=== PATIENT | female | born 1985 | race Caucasian/White ===

== ENCOUNTER 2023-10-13 16:44 | Emergency (ER) | payer SELFPAY ==
[2023-10-13] VITALS (19 sets, daily range): BP systolic 93–136; BP diastolic 47–89
[~2023-10-13] VITALS: Ht 162.6 cm; Wt 63.6 kg
[2023-10-13] MEDS ORDERED: MULTIPLE VITAMIN 10 ML,THIAMINE HCL 100 MG in SODIUM CHLORIDE 0.9% 1,000 ML IV ONE (16:50)
[2023-10-13] MEDS ORDERED: ONDANSETRON HCl 4 MG/2 ML SDV IV ONE (16:50)
[2023-10-13] MEDS ORDERED: SODIUM CHLORIDE 0.9% 1,000 ML IV ONE (16:50)
[2023-10-13] MEDS ORDERED: PROMETHAZINE HCL 25 MG/ML AMP IM ONE (17:00)
[2023-10-13 17:14] LABS: BASO% 0.5 % (0-3); EOS% 0.1 % (0-8); HEMATOCRIT 35.6 % (37.0-47.0); HEMOGLOBIN 11.6 g/dl (12.0-16.0); IMMATURE GRANULOCYTES 0.1 % (0.0-5.0); LYMPH% 22.9 % (15-41); MEAN CELL VOLUME 89.2 fL CALC (80.0-100.0); MEAN CORPUSCULAR HGB 29.1 pG CALC (26.0-32.0); MEAN CORPUSCULAR HGB CONC 32.6 g/dL CAL (32.0-36.0); MONO% 6.3 % (2-13); NEUT# 5.11 thou/uL (2.00-7.15); NEUT% 70.1 % (42-76); RED BLOOD COUNT 3.99 mill/uL (4.20-5.60); RED CELL DISTRI WIDTH 17.9 % (11.5-15.5)
[2023-10-13 17:24] LABS: ALBUMIN 4.4 g/dL (3.2-5.0); BILIRUBIN, TOTAL 0.6 mg/dL (0.02-1.3); CREATININE 0.7 mg/dL (0.5-1.0); POTASSIUM 3.7 mmol/l (3.5-5.1); TOTAL PROTEIN 7.7 g/dL (6.3-8.2)
[2023-10-13] MEDS ORDERED: LORazepam 2 MG/ML IV ONE ×2 (17:35→19:50)
== END 2023-10-13 22:24 | disposition home or self-care (01) | DRG 897 ==
LOC: ED 16:44
PROVIDERS: Family Medicine
DX: F10.229 Alcohol dependence with intoxication, unspecified (principal); Y90.8 Blood alcohol level of 240 mg/100 ml or more
CPT/HCPCS: J2060